=== PATIENT | male | born 1945 | race Caucasian/White ===

== ENCOUNTER → 2020-05-03 | Outpatient (CLI) | payer OTHER ==
[2020-05-03 11:42] LABS: BASO % 1 % (0-3); EOS # 0.1 x10^3/uL (0.0-0.7); EOS % 1 % (0-3); HEMATOCRIT 39.8 % (39.0-53.0); HEMOGLOBIN 13.5 g/dL (13.0-17.5); LYMPH # 2.2 x10^3/uL (1.0-4.8); LYMPH % 38 % (24-48); MEAN CORPUSCULAR HEMOGLOBIN 32 pg (25-35); MEAN CORPUSCULAR HGB CONC 34 g/dL (31-37); MEAN CORPUSCULAR VOLUME 94 fL (79-100); MONO # 0.5 x10^3/uL (0.0-1.1); MONO % 9 % (0-9); NEUT % 52 % (31-73); PLATELET COUNT 117 x10^3/uL (140-400); RED BLOOD COUNT 4.25 x10^6/uL (4.30-5.70); RED CELL DISTRIBUTION WIDTH 14.6 % (11.5-14.5)
[2020-05-03 14:50] LABS: WHITE BLOOD COUNT 5.8 x10^3/uL (4.0-11.0)
[2020-05-04 17:11] LABS: KAPPA FREE 16.1 mg/L (3.3-19.4); KAPPA LAMBDA RATIO 0.72 (0.26-1.65); LAMBDA FREE 22.4 mg/L (5.7-26.3)
[2020-05-05 15:13] LABS: ALBUM 4.2 g/dL (2.9-4.4); ALPHA 1 0.2 g/dL (0.0-0.4); ALPHA 2 0.8 g/dL (0.4-1.0); BETA 1.1 g/dL (0.7-1.3); GAMMA 1.1 g/dL (0.4-1.8); PROTEIN TOTAL 7.3 g/dL (6.0-8.5); SPEP AG RATIO 1.4 (0.7-1.7)
== END ==
LOC: ONCLAB 11:00
PROVIDERS: ATTEND Internal Medicine Hematology & Oncology
DX: D69.59 Other secondary thrombocytopenia (principal)
CPT/HCPCS: 36415; 82607; 82746; 83520; 84165; 85025